=== PATIENT | female | born 1940 | race Hispanic/Latino ===

== ENCOUNTER 2016-05-12 00:28 | Inpatient (IN) | payer MEDICARE, BC ==
[2016-05-12 00:29] VITALS: BMI 29.2
[2016-05-12] MEDS ORDERED: Sodium Chloride 0.9% 1,000 ML IV STA (01:22)
--- NOTE | 2016-05-12 01:27 | ED PDOC ---
Arrival/HPI - General Chief Complaint: GI Problem Time Seen by Provider: 05/12/16 00:43 Historian: Patient - History of Present Illness Narrative History of Present Illness (Text): 05/12/16 01:24 75 year old female on aspirin and plavix presents to the emergency department complaining of 1 day duration bloody diarrhea. Patient denies any recent travel or recent antibiotics. She denies abdominal pain, nausea, vomiting, lightheadedness, weakness, shortness of breath, dyspnea on exertion, or chest pain. Time/Duration: 24 hours Symptom Onset: Gradual Symptom Course: Unchanged Activities at Onset: Rest Past Medical History - Provider Review Nursing Documentation Reviewed: Yes - Infectious Disease Hx of Infectious Diseases: None - Cardiac Hx Cardiac Disorders: Yes Hx SD: Yes Hx Hypertension: Yes - Pulmonary Hx Respiratory Disorders: No - Neurological Hx Neurological Disorder: No Hx Vertigo: Yes - HEENT Hx HEENT Disorder: Yes Hx Deafness: (hearing aids) Other/Comment: [place] - Renal Hx Renal Disorder: No - Endocrine/Metabolic Hx Endocrine Disorders: No - Hematological/Oncological Hx Blood Disorders: No - Integumentary Hx Dermatological Disorder: No - Musculoskeletal/Rheumatological Hx Falls: No - Gastrointestinal Hx Gastrointestinal Disorders: No - Genitourinary/Gynecological Hx Genitourinary Disorders: No - Psychiatric Hx Psychophysiologic Disorder: No Hx Substance Use: No - Surgical History Hx Cardiac Catheterization: Yes Hx Cholecystectomy: Yes Hx Coronary Stent: Yes (x1) - Anesthesia Hx Anesthesia: Yes Hx Anesthesia Reactions: No Hx Malignant Hyperthermia: No Family/Social History - Physician Review Nursing Documentation Reviewed: Yes Family/Social History: Unknown Family HX Smoking Status: Never Smoked Hx Alcohol Use: No Hx Substance Use: No Allergies/Home Meds Allergies/Adverse Reactions: Allergies No Known Allergies Allergy (Verified 05/29/15 09:39) Home Medications: Home Meds Medication Instructions Recorded Confirmed Atorvastatin [Lipitor] 40 mg PO DAILY 05/29/15 05/12/16 Clopidogrel [Plavix] 75 mg PO DAILY 05/29/15 05/12/16 Nebivolol [Bystolic] 5 mg PO DAILY 05/29/15 05/12/16 Pantoprazole [Protonix EC Tab] 40 mg PO DAILY 05/29/15 05/12/16 Meclizine [Antivert] 12.5 mg PO TID 05/31/15 05/12/16 Naproxen [Anaprox] 500 mg PO BID 05/31/15 05/12/16 Aspirin [Adult Low Dose Aspirin EC] 1 tab PO DAILY 05/12/16 05/12/16 Calcium Carb/Magnesium Oxid/D3 1 tab PO DAILY 05/12/16 05/12/16 [Calcium Magnesium + D Tablet] Cholecalciferol (Vitamin D3) 1 tab PO Q7D 05/12/16 05/12/16 [Vitamin D3] Cyanocobalamin (Vitamin B-12) 1 tab PO DAILY 05/12/16 05/12/16 [Vitamin B12] Donepezil [Aricept] 1 tab PO HS 05/12/16 05/12/16 Memantine [Namenda] 1 tab PO DAILY 05/12/16 05/12/16 QUEtiapine [Seroquel] 1 tab PO HS 05/12/16 05/12/16 Physical Exam - Physical Exam Narrative Physical Exam (Text): 05/12/16 01:27 - Review of Systems Constitutional: Normal. absent: Fatigue, Weight Change, Fevers Eyes: Normal ENT: Normal Respiratory: Normal absent: SOB, Cough, Sputum Cardiovascular: Normal absent: Chest pain, Palpitations, Syncope, Dyspnea on Exertion Gastrointestinal: Bloody diarrhea absent: Abdominal pain, Nausea, Vomiting Genitourinary: Normal. absent: Dysuria, Frequency, Hematuria Musculoskeletal: Normal. absent: Arthralgias, Back Pain, Neck Pain Skin: Normal Neurological: Normal absent: Focal Weakness, Lightheadedness Endocrine: Normal Hemo/Lymphatic: Normal Psychiatric: Normal - Physical exam Patient appears age appropriate, speaking full sentences without difficulty - Systems Exam Head: Present: Atraumatic, Normocephalic Pupils: Present: PERRL Extraocular Muscles: Present: EOMI Conjunctiva: Present: Normal Mouth: Present: Moist Mucous Membranes Neck: Present: Normal Range of Motion. No: MIDLINE TENDERNESS, Paraspinal Tenderness Respiratory/Chest: Present: Clear to Auscultation, Good Air Exchange. No: Respiratory Distress, Accessory Muscle Use, Tachypneic Cardiovascular: Present: Regular Rate and Rhythm, Normal S1, S2, Peripheral Pulses Present. No: Murmurs Abdomen: Present: Normal Bowel Sounds, No: Tenderness, Peritoneal Signs, Rebound, Guarding, Distention Rectal: Present: Gross blood. Nurse Rafiq present. Back: Present: Normal Inspection. No: Midline Tenderness, Paraspinal Tenderness Upper Extremity: Present: Normal Inspection. No: Cyanosis, Edema Lower Extremity: Present: Normal Inspection. No: Edema Neurological: Present: GCS=15, Speech Normal, cranial nerves II through XII fully intact with no cerebellar abnormality, neuro-sensory fully intact. No focal neurological deficits. Skin: Present: Warm, Dry, Normal Color. No: Rashes Lymphatic: Present: OX3, NI, NC Psychiatric: Present: Alert, Oriented x 3, Normal Insight, Normal Concentration Vital Signs Reviewed: Yes Vital Signs Temp Pulse Resp BP Pulse Ox 05/12/16 01:43 63 20 129/63 100 05/12/16 00:37 97.8 F 73 18 154/82 H 98 Temperature: Afebrile Blood Pressure: Normal Pulse: Regular Respiratory Rate: Normal Appearance: Positive for: Well-Appearing, Non-Toxic, Comfortable Pain Distress: None Mental Status: Positive for: Alert and Oriented X 3 Medical Decision Making ED Course and Treatment: 05/12/16 01:29 Impression: Elderly female on aspirin and plavix with bloody diarrhea, hemodynamically stable. Rectal exam revealed gross blood. Plan: --EKG --Chest X-ray --Urinalysis --Labs --Protonix, IVF -- Reassess and disposition Progress Notes: 05/12/16 02:04 Chest X-ray read and interpreted by me, which shows no cardiomegaly, no pneumothorax, no effusions. 05/12/16 02:[address] García, agrees with admission for further w/u under his service pt and family aware of and agree with [facility] - Lab Interpretations Lab Results: 05/12/16 01:12 05/12/16 01:12 Lab Results 05/12/16 01:12: WBC 8.7 D, RBC 3.66, Hgb 10.6 L, Hct 32.3 L, MCV 88.3, MCH 29.0 , MCHC 32.8, RDW 13.7, Plt Count 255, MPV 10.9, Gran % 74.1 H, Lymph % (Auto) 16.3 L, Stone % (Auto) 7.7 H, Eos % (Auto) 1.7, Baso % (Auto) 0.2, Gran # 6.44, Lymph # 1.4, Stone # 0.7 H, Eos # 0.2, Baso # 0.02, PT 11.0, INR 1.02, APTT 25.5 , Sodium 136, Potassium 3.9, Chloride 101, Carbon Dioxide 25, Anion Gap 14, BUN 26 H, Creatinine 0.9, Est GFR ( Amer) > 60, Est GFR (Non-Af Amer) > 60, Random Glucose 103, Calcium 9.3, Ferritin Pending, Total Bilirubin 0.9, AST 38, ALT 27, Alkaline Phosphatase 113, Lactate Dehydrogenase 575, Total Creatine Kinase 81, Troponin I < 0.01, Total Protein 7.3, Albumin 4.1, Globulin 3.2, Albumin/Globulin Ratio 1.3 I have reviewed the lab results: Yes - RAD Interpretation Radiology Orders: 05/12/16 00:43 CHEST PORTABLE [RAD] Stat - EKG Interpretation EKG Interpretation (Text): 05/12/16 01:32 EKG: Ordered, reviewed, and independently interpreted the EKG. Rate : 64 BPM Rhythm : NSR Interpretation : No ST-segment elevations, normal axis, normal intervals. Interpreted by me. Comparison : No previous EKG for comparison. Interpreted by ED Physician: Yes Type: 12 lead EKG - Medication Orders Current Medication Orders: Discontinued Medications Sodium Chloride (Sodium Chloride 0.9%) 1,000 mls @ 1,000 mls/hr IV .Q1H STA Stop: 05/12/16 02:21 Last Admin: 05/12/16 01:35 Dose: 1,000 MLS/HR eMAR Start Stop Document 05/12/16 01:35 Kody (Rec: 05/12/16 01:35 R [id number]) Intravenous Solution Start Date 05/12/16 Start Time 01:35 End Date 05/12/16 End time 02:35 Total Infusion Time 60 Pantoprazole Sodium (Protonix Inj) 40 mg IVP STAT STA Stop: 05/12/16 01:23 Last Admin: 05/12/16 01:42 Dose: 40 MG IVP Administration Document 05/12/16 01:42 Kody (Rec: 05/12/16 01:42 R [id number]) Charges for Administration # of IVP Administrations 1 - Scribe Statement The provider has reviewed the documentation as recorded by the Scribe Mari Jacobs Provider Scribe Attestation: All medical record entries made by the Michaelibe were at my direction and personally dictated by me. I have reviewed the chart and agree that the record accurately reflects my personal performance of the history, physical exam, medical decision making, and the department course for this patient. I have also personally directed, reviewed, and agree with the discharge instructions and disposition. Disposition/Present on Arrival - Present on Arrival Any Indicators Present on Arrival: No History of DVT/PE: No History of Uncontrolled Diabetes: No Urinary Catheter: No History of Decub. Ulcer: No History Surgical Site Infection Following: None - Disposition Have Diagnosis and Disposition been Completed?: Yes Diagnosis: Bloody diarrhea Disposition: HOSPITALIZED Disposition Time: 02:36 Patient Plan: Admission Condition: STABLE
[2016-05-12 01:28] LABS: ADD MANUAL DIFF? NO
[2016-05-12 01:42] LABS: ALB/GLOB RATIO 1.3 (1.1-1.8); ALKALINE PHOSPHATASE 113 U/L (38-133); ALT/SGPT 27 U/L (7-56); AST/SGOT 38 U/L (15-39); BILIRUBIN,TOTAL 0.9 mg/dL (0.2-1.3); BLOOD UREA NITROGEN 26 mg/dL (7-21); CALCIUM 9.3 mg/dL (8.4-10.5); CARBON DIOXIDE 25 mmol/L (21-33); CHLORIDE 101 mmol/L (98-107); GFR AFRICAN-AMERICAN > 60; GLUCOSE,RANDOM 103 mg/dL (70-110); POTASSIUM 3.9 mmol/L (3.6-5.0); SODIUM 136 mmol/L (132-148); TOTAL PROTEIN 7.3 g/dL (5.8-8.3)
[2016-05-12 01:50] LABS: BASO # 0.02 K/mm3 (0.0-2.0); BASO % 0.2 % (0.0-3.0); EOS # 0.2 (0.0-0.7); EOS % 1.7 % (1.5-5.0); GRAN # 6.44 (1.4-6.5); GRAN % 74.1 % (50.0-68.0); HEMATOCRIT 32.3 % (36.0-48.0); LYMPH # 1.4 (1.2-3.4); LYMPH % 16.3 % (22.0-35.0); MEAN CELL VOLUME 88.3 fL (80.0-105.0); MEAN CORPUSCULAR HGB CONC 32.8 g/dl (31.0-37.0); MEAN PLATELET VOLUME 10.9 fl (7.0-11.0); MONO # 0.7 (0.1-0.6); MONO % 7.7 % (1.0-6.0); PLATELET COUNT 255 10^3/uL (120.0-450.0); RED CELL DISTRIBUTION WIDTH 13.7 % (11.5-14.5); WHITE BLOOD COUNT 8.7 10^3/ul (4.5-11.0)
[2016-05-12 01:55] LABS: TROPONIN I < 0.01 ng/mL
[2016-05-12 02:02] LABS: INR 1.02 (0.93-1.08); PARTIAL THROMBOPLASTIN TIME 25.5 Seconds (23.7-30.8)
--- NOTE | 2016-05-12 09:14 | HP ---
The patient is in the CCU, which is the critical care unit, room 129, bed 1. HISTORY OF PRESENT ILLNESS: The patient was admitted last night. She presented with rectal bleeding which was substantial. The patient's daughter was concerned and brought the patient to the Emergency Room. According to the daughter, her mother had 3 episodes yesterday of bright red blood per rectum. She has been evaluated and admitted to the ICU for further management. The patient has no fever, no pain. The patient has difficulty in hearing. She has a hearing aid, but it is not appropriately functional. ALLERGIES: The patient has no known allergies. She is a full code. PAST MEDICAL HISTORY: Significant in that she has a history of peptic ulcer disease. The patient has history of coronary artery disease and mild dementia associated with altered mental state, at times the patient has nightmares and dreams. PREVIOUS SURGICAL HISTORY: Nil. PHYSICAL EXAMINATION: VITAL SIGNS: The pulse is 62, blood pressure is 144/65, patient's temperature 97.5, O2 sat 96% on room air. HEENT: Head is normocephalic. Eyes are within normal limits clinically. NECK: The thyroid is not clinically enlarged. The patient's carotid pulses are present bilaterally. HEART: Normal sinus rhythm. Pulse is 62 which is bradycardic but patient is on medications. LUNGS: Trachea central. Breath sounds vesicular. No adventitious sounds are heard at this time. ABDOMEN: Soft. Liver, spleen not palpable. No tenderness, no masses. RECTAL: The patient has a clear, red blood present. CENTRAL NERVOUS SYSTEM: She is conscious, pleasant and cooperative. 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 Auditory function is impaired. LABORATORY DATA: Blood work in the Emergency Room showed a hemoglobin 10.6, which is about what she runs on average. The patient's chemistry: total iron level is 262, the ferritin is pending and the patient's BUN is 26, creatinine 0.9. HOME MEDICATIONS: Consist of Plavix 75 mg daily. The patient is on vitamin D3 once a day 2000 mg. The patient is on magnesium oxide once a day. The patient is on vitamin B12 p.o. sublingual. The patient is on Bystolic 5 mg daily, Aricept 5 mg daily. The patient is on aspirin one tablet which is 81 mg prophylactic, Namenda 5 mg daily. The patient is on Lipitor 40 mg daily, Seroquel 25 mg at bedtime, pantoprazole 40 mg in the morning. The patient takes Naprosyn for back pain and meclizine for dizziness 12.5 mg 3 times a day. The patient's diet is heart healthy. The patient has had a flu vaccine immunization. Her blood pressure is controlled with Bystolic. PLAN: The patient's condition is clinically stable at this time. She will have a gastroenterological evaluation with Dr. Schultz. We will follow up and continue to monitor her hemoglobin at this time. She will be started on IV Protonix. Aspirin, Plavix and NSAIDs will be held due to the GI bleeding. Camron Wagner MD cc: [id number] TT: 05/12/2016 09:13:04 jn MTDD
--- NOTE | 2016-05-12 09:42 | RAD ---
HISTORY: Cough COMPARISON: 05/29/2015 FINDINGS: LUNGS: The lungs are well inflated and clear. PLEURA: No significant pleural effusion identified, no pneumothorax apparent. CARDIOVASCULAR: Normal. OSSEOUS STRUCTURES: No significant abnormalities. VISUALIZED UPPER ABDOMEN: Normal. OTHER FINDINGS: None. IMPRESSION: No active pulmonary disease.
[2016-05-12] MEDS: Magnesium Oxide 400 mg Tab UD PO SCH (10:49)
--- NOTE | 2016-05-12 14:57 | CARD ---
APPROVED REPORT EKG Measurement Heart [id number] <Conclusion> Normal sinus rhythm Minimal voltage criteria for LVH, may be normal variant Cannot rule out Anterior infarct, age undetermined Abnormal ECG
[2016-05-12 16:34] LABS: HEMATOCRIT 29.2 % (36.0-48.0); MEAN CELL VOLUME 87.7 fL (80.0-105.0); MEAN CORPUSCULAR HEMOGLOBIN 28.5 pg (25.0-35.0); MEAN CORPUSCULAR HGB CONC 32.5 g/dl (31.0-37.0); MEAN PLATELET VOLUME 10.5 fl (7.0-11.0)
[2016-05-12 22:32] LABS: HEMATOCRIT 27.8 % (36.0-48.0); MEAN CELL VOLUME 87.1 fL (80.0-105.0); MEAN CORPUSCULAR HEMOGLOBIN 28.5 pg (25.0-35.0); MEAN CORPUSCULAR HGB CONC 32.7 g/dl (31.0-37.0); RED CELL DISTRIBUTION WIDTH 13.9 % (11.5-14.5); WHITE BLOOD COUNT 5.6 10^3/ul (4.5-11.0)
[2016-05-13] MEDS: Pantoprazole 40 mg EC Tab PO SCH (05:36)
[2016-05-13 06:38] LABS: ADD MANUAL DIFF? NO
[2016-05-13 06:42] LABS: BASO # 0.02 K/mm3 (0.0-2.0); BASO % 0.4 % (0.0-3.0); EOS # 0.2 (0.0-0.7); EOS % 3.4 % (1.5-5.0); GRAN # 3.38 (1.4-6.5); GRAN % 63.8 % (50.0-68.0); HEMATOCRIT 28.7 % (36.0-48.0); LYMPH # 1.1 (1.2-3.4); LYMPH % 21.4 % (22.0-35.0); MEAN CELL VOLUME 87.2 fL (80.0-105.0); MEAN CORPUSCULAR HEMOGLOBIN 28.9 pg (25.0-35.0); MEAN CORPUSCULAR HGB CONC 33.1 g/dl (31.0-37.0); MEAN PLATELET VOLUME 10.3 fl (7.0-11.0); MONO # 0.6 (0.1-0.6); PLATELET COUNT 217 10^3/uL (120.0-450.0); WHITE BLOOD COUNT 5.3 10^3/ul (4.5-11.0)
[2016-05-13 07:10] LABS: ALB/GLOB RATIO 1.1 (1.1-1.8); ALKALINE PHOSPHATASE 73 U/L (38-133); ALT/SGPT 19 U/L (7-56); AST/SGOT 23 U/L (15-39); BILIRUBIN,TOTAL 0.9 mg/dL (0.2-1.3); BLOOD UREA NITROGEN 21 mg/dL (7-21); CALCIUM 9.3 mg/dL (8.4-10.5); CARBON DIOXIDE 24 mmol/L (21-33); CHLORIDE 104 mmol/L (98-107); GFR AFRICAN-AMERICAN > 60; GLUCOSE,RANDOM 86 mg/dL (70-110); POTASSIUM 3.8 mmol/L (3.6-5.0); SODIUM 139 mmol/L (132-148); TOTAL PROTEIN 6.3 g/dL (5.8-8.3)
--- NOTE | 2016-05-13 07:28 | CON ---
DATE: 05/12/2016 SUBJECTIVE: This patient was seen and evaluated earlier, discussed with Dr. Wagner. HISTORY OF PRESENT ILLNESS: This is a 75-year-old patient with a past medical history of coronary ar frank disease, peptic ulcer disease, history of cerebrovascular disease, on aspirin and Plavix, who wa s brought to the hospital for complaints of loose bowel movements 1 day mixed with blood. She said t hat she woke up in the morning and moved her bowels and noticed the blood then. She had a few recurr ent bowel movements mixed with blood. Denies any abdominal pain. No vomiting blood. PAST MEDICAL HISTORY: Other past medical history is significant as above. SOCIAL HISTORY: Denies smoking or alcohol. REVIEW OF SYSTEMS: Positive as above. Other 10-point systems reviewed. PHYSICAL EXAMINATION: GENERAL: The patient is lying on the bed, not in acute distress. VITAL SIGNS: Temperature is 97.9, blood pressure 121/67, pulse 96. HEENT: Atraumatic, anicteric. NECK: Supple. HEART: S1, S2 heard. LUNGS: Bilateral air entry present. ABDOMEN: Soft. There is no mass palpable. No tenderness. EXTREMITIES: No edema, no cyanosis. NEUROLOGIC: Alert, oriented. Moves all the extremities. LABORATORY DATA: Hemoglobin 9.5, hematocrit 29.2, platelets 237. Hemoglobin is 9.3, hematocrit 27. 9. IMPRESSION: This is a 75-year-old patient admitted with shortness of breath. The differential diagn osis should include coronary artery disease status post PCI many years ago, on aspirin and Plavix. I n addition, the patient also has cerebrovascular disease. IMPRESSION: This is a 75-year-old patient with a history of coronary artery disease status post perc utaneous coronary intervention in February. RECOMMENDATIONS: 1. Follow up of the hemoglobin. The differential diagnosis of the bleeding should include hemorrhoi ds, diverticulosis, angiodysplasia, colonic neoplasia. I did discuss with the patient's Dr. Benjamin elizondo. The plan is to consider giving a platelet transfusion if the patient has active bleeding g oing on. The patient definitely would benefit from an endoscopy. At this point, it is reasonable to wait the clinical course before considering the endoscopic evaluation. Moreover, she would also pierce efit from platelet transfusion in view of the patient being on aspirin and Plavix before. Chikis Schultz MD cc: [id number] TT: 05/12/2016 23:58:26 Confirmation # [id number] Dictation # [id number] mn 05/13/2016 06:27:49
[2016-05-13] MEDS: Magnesium Oxide 400 mg Tab UD PO SCH (09:36)
[2016-05-13] MEDS: VITAMIN B12 5000 MCG PO SCH (09:36)
[2016-05-13] MEDS ORDERED: Bupivacaine 0.5% Inj(30mL) IJ ONE (11:41)
[2016-05-13] MEDS ORDERED: MethylPREDNISolone Depo 40 mg/ml Inj IM ONE (11:41)
--- NOTE | 2016-05-13 12:47 | CON ---
DATE: 05/13/2016 ORTHOPEDIC CONSULT REPORT A 75-year-old female in room 260, bed 1. The patient is suffering from right-sided sciatica with significant spinal stenosis, lumbar spine wit h radiating pain to the posterior calf aggravated by standing and walking, and good arterial pulse. DVT shows no blood clots. She appears to have classic spinal stenosis with claudication from walking , irritating the spinal stenosis, which was a neurologic claudication as opposed to vascular, and sh e does have trigger point of her right trochanter area. So I took the opportunity to inject the righ t trochanter with Depo-Medrol and Marcaine to get some symptomatic relief. I do not expect that to h elp the spinal stenosis, but eventually, when she gets cleared medically, she could consider epidural , as the MRI shows severe spinal stenosis of the lumbar spine in the region of L4 and L5, and she may also benefit not only from the cortisone shots for the trochanter on the right, but some physical th erapy to teach her how to live with this condition by doing knee to chest flexion exercises of the sp ine, avoid heavy lifting, and to increase her core strength of her lumbar spine, and eventually, when she gets better medically, she could consider an epidural for some relief by the anesthesia doctor, who is more informed on this part of the anatomy, and they do it all the time for anesthesia. FINAL DIAGNOSIS: Right hip greater trochanteric bursitis and spinal stenosis, lumbar spine. Arjun Hawthorne DO cc: [id number] TT: 05/13/2016 12:46:44 Confirmation # [id number] Dictation # [id number] hiwot
--- NOTE | 2016-05-13 14:48 | RAD ---
PROCEDURE: Right Hip Radiographs. HISTORY: pain COMPARISON: None. FINDINGS: BONES: Bone alignment and mineralization are normal. There is no acute fracture or bone destruction. . JOINTS: Normal. SOFT TISSUES: Normal. OTHER FINDINGS: None. IMPRESSION: No acute fracture or dislocation.
--- NOTE | 2016-05-13 14:49 | RAD ---
PROCEDURE: Radiographs of the pelvis. HISTORY: pain COMPARISON: None. FINDINGS: BONES: The pelvic ring is intact. There is no acute fracture or bone destruction. There is mild degenerative osteoarthrosis in the hip joints with mild reduced joint spaces. JOINTS: Sacroiliac Joints: Mild degenerative osteoarthrosis. Pubic Symphysis: Unremarkable. OTHER FINDINGS: None. IMPRESSION: Mild degenerative osteoarthrosis in the hip joints. No acute fracture or dislocation.
--- NOTE | 2016-05-13 19:14 | NM ---
PROCEDURE: Nuclear medicine gastrointestinal bleeding scan. HISTORY: GI bleed COMPARISON: None available. TECHNIQUE: 4 cc of patient blood was withdrawn and mixed with 21 mCi of technetium ultra tagged. Images of the abdomen and pelvis were obtained in the anterior and posterior projection at 1 min intervals over a period of 45 min. FINDINGS: No abnormal extravasation of tracer was observed throughout the exam to indicate active bleeding within or outside the gastrointestinal tract. Physiologic activity was seen in the heart, liver, spleen and blood vessels. IMPRESSION: No evidence of active gastrointestinal bleeding. Concordant results (preliminary interpretation) provided by [facility]. Procedure Completed: 17:45. Preliminary ([facility]) Report: Dictated and Authenticated: 19:40. Final Interpretation: 19:12. May 13, 2016.
--- NOTE | 2016-05-13 20:27 | PN ---
DATE: 05/13/2016 SUBJECTIVE: This patient was seen and evaluated earlier, discussed with the patient's daughter who w as at bedside. The patient has been moving her bowels and no abdominal pain. No bleeding today. PHYSICAL EXAMINATION: VITAL SIGNS: Temperature 98, pulse 55, blood pressure 145/75. HEENT: Atraumatic, anicteric. NECK: Supple. HEART: S1, S2 heard. LUNGS: Bilateral air entry present. ABDOMEN: Soft. There is no tenderness. EXTREMITIES: No edema. No cyanosis. NEUROLOGIC: Alert, oriented. Moves all the extremities. LABORATORY DATA: Hemoglobin 9.5, it was 9.1 yesterday; hematocrit 28.7, WBC 5.3, platelets 217. Norma britton is essentially unremarkable. IMPRESSION: This 75-year-old patient was admitted with bleeding per rectum, maroon stool. The patie nt has been on aspirin and Plavix. The hemoglobin is now stable. The patient was off the antiplatel et therapy at this present time. The patient was on nonsteroidal anti-inflammatory drugs for joint p ain. PLAN: The present plan is to continue to follow up the hemoglobin and hematocrit and if there is an active bleeding, will consider platelet transfusion. The patient has been scheduled for an upper GI endoscopy tomorrow. Since the patient was off the aspirin only the day before the admission, the jerri n is to consider diagnostic workup. Thank you very much for allowing us to participate in the care of the patient. Chikis Schultz MD cc: [id number] TT: 05/13/2016 20:26:24 Confirmation # [id number] Dictation # [id number] dn
--- NOTE | 2016-05-13 20:55 | PN ---
DATE: 05/13/2016 The patient is in the [facility] in [place], admitted yesterday. The patient presented with rectal bleeding. She also had some discomfort in the chest, dizziness. She had anxiety, worried about her bleeding from the rectum. She has past history of coronary artery disease, cerebrovascular disease, dizziness. The patient has history of degenerative arthritis, lumbar neuritis, osteoarthritis. The patient had irregular heartbeat. She also has on and off chest pain. She has a clinical diagnosis of dementia for which she gets treatment. PHYSICAL EXAMINATION: GENERAL: On examination, the patient is on the telemetry floor, room 260, bed 1. She is lying down, comfortable. VITAL SIGNS: Pulse is 55, blood pressure is 145/75, respirations are 20, temperature 98.0. HEAD: Normocephalic. NECK: Thyroid is not enlarged. Carotid pulses are present. There is no lymphadenopathy in the neck. LUNGS: Trachea is central. Breath sounds vesicular. No adventitious sounds. HEART: Normal sinus rhythm, S1, S2 present, sinus bradycardia. ABDOMEN: Soft. Liver, spleen not palpable. No tenderness. No masses. RECTAL: The patient has rectal bleeding and it is evident. The patient had a bleeding scan yesterday which is not completely diagnostic. CENTRAL NERVOUS SYSTEM: She is conscious. She has stiffness. She wears a hearing aid. She also has a history of cerebrovascular disease and dementia. MEDICATIONS: The patient's medications consist of Antivert 12.5 mg 3 times a day, Aricept 5 mg daily, Lipitor 40 mg daily, magnesium oxide 400 mg daily, Namenda 5 mg daily, calcium carbonate twice a day for osteoporosis. The patient takes pantoprazole 40 mg daily, Seroquel 25 mg at bedtime, Tenormin 50 mg daily for blood pressure, vitamin B12 and also vitamin D. ASSESSMENT AND PLAN: The patient was seen by Dr. Hawthorne. He is the orthopedic surgeon who evaluated the patient and recommended a local injection of steroid for sciatic pain. The patient will also be requested to do physical therapy evaluation tomorrow. The patient's GI evaluation was done by Dr. Schultz. He is a product marketing intern. He had placed the patient after the bleeding scan on a followup CBC to monitor the hemoglobin level. The patient also had 2 units of blood available in case the patient needed to be transfused. The patient will probably need endoscopy, upper and lower endoscopy to delineate and diagnose the cause of bleeding. Her vital signs are stable at this time. We will have followup with treatment and evaluations. The CAT scan of the abdomen was ordered on the patient, and it will be evaluated by Dr. Schultz. LABORATORY DATA: The patient's blood work: The recent hemoglobin is 9.5. The patient's chemistry: The sodium is 139, potassium is 3.8. The renal functions are good. The patient's GFR is greater than 60. The transferrin level is 221. The patient's albumin is 3.3. We will continue with the medications and monitor the patient's hemoglobin every 6 hours, and we will follow up with Dr. Schultz and Dr. Hawthorne's treatment plan. Camron Wagner MD cc: [id number] TT: 05/13/2016 20:55:06 Confirmation # [id number] Dictation # [id number] mn MTDD
[2016-05-14] MEDS: Pantoprazole 40 mg EC Tab PO SCH ×2 (05:35→05:36)
[2016-05-14 08:33] LABS: MEAN CELL VOLUME 87.6 fL (80.0-105.0); MEAN CORPUSCULAR HEMOGLOBIN 28.7 pg (25.0-35.0); MEAN CORPUSCULAR HGB CONC 32.8 g/dl (31.0-37.0); MEAN PLATELET VOLUME 10.4 fl (7.0-11.0); RED CELL DISTRIBUTION WIDTH 13.8 % (11.5-14.5); WHITE BLOOD COUNT 7.9 10^3/ul (4.5-11.0)
[2016-05-14 08:59] LABS: ALB/GLOB RATIO 1.2 (1.1-1.8); ALKALINE PHOSPHATASE 82 U/L (38-133); ALT/SGPT 24 U/L (7-56); AST/SGOT 21 U/L (15-39); BILIRUBIN,TOTAL 0.8 mg/dL (0.2-1.3); BLOOD UREA NITROGEN 19 mg/dL (7-21); CALCIUM 9.3 mg/dL (8.4-10.5); CARBON DIOXIDE 27 mmol/L (21-33); CHLORIDE 103 mmol/L (95-110); GFR AFRICAN-AMERICAN > 60; GLUCOSE,RANDOM 107 mg/dL (70-110); MAGNESIUM 1.9 mg/dL (1.7-2.2); POTASSIUM 4.1 mmol/L (3.6-5.0); SODIUM 140 mmol/L (132-148); TOTAL PROTEIN 6.9 g/dL (5.8-8.3)
[2016-05-14] MEDS: Magnesium Oxide 400 mg Tab UD PO SCH (09:03)
--- NOTE | 2016-05-14 09:11 | CP.PCM.PN ---
Subjective - Date & Time of Evaluation Date of Evaluation: 05/14/16 Time of Evaluation: 08:20 - Subjective Subjective: Patient is seen this morning in room 260 bed 1. She is to go for endoscopy this morning. Objective - Vital Signs/Intake and Output Vital Signs (last 24 hours): Temp Pulse Resp BP Pulse Ox 97.9 F 52 L 18 135/63 98 05/14/16 06:00 05/14/16 06:00 05/14/16 06:00 05/14/16 06:00 05/14/16 06:00 Intake and Output: 05/14/16 05/14/16 06:59 18:59 Intake Total 1077 Output Total 400 Balance 677 - Medications Medications: Current Medications Atenolol (Tenormin) 50 mg PO DAILY [facility] Last Admin: 05/13/16 09:36 Dose: 50 mg Atorvastatin Calcium (Lipitor) 40 mg PO DIN [facility] Last Admin: 05/13/16 17:56 Dose: 40 mg Calcium Carbonate (Oscal) 500 mg PO DAILY [facility] Last Admin: 05/13/16 09:36 Dose: 500 mg Cholecalciferol (Vitamin D) 1,000 iu PO DAILY [facility] Last Admin: 05/13/16 09:37 Dose: 1,000 iu Cyanocobalamin (Vitamin B12 1000 Mcg Tab) 5,000 mcg PO DAILY [facility] Last Admin: 05/13/16 09:36 Dose: 5,000 mcg Donepezil HCl (Aricept) 5 mg PO HS [facility] Last Admin: 05/13/16 21:40 Dose: 5 mg Home Med (Home Med) 1 unit PO DAILY [facility] Last Admin: 05/13/16 09:36 Dose: Not Given Magnesium Oxide (Mag-Ox) 400 mg PO DAILY [facility] Last Admin: 05/13/16 09:36 Dose: 400 mg Meclizine HCl (Antivert) 12.5 mg PO TID [facility] Last Admin: 05/13/16 17:56 Dose: 12.5 mg Memantine (Namenda) 5 mg PO DAILY [facility] Last Admin: 05/13/16 09:36 Dose: 5 mg Pantoprazole Sodium (Protonix Ec Tab) 40 mg PO 0630 [facility] Last Admin: 05/14/16 05:36 Dose: 40 mg Quetiapine Fumarate (Seroquel) 25 mg PO [facility] PRN Reason: Protocol Last Admin: 05/13/16 21:40 Dose: 25 mg - Labs Labs: 05/14/16 08:20 05/14/16 08:20 PT 11.0 Seconds (9.9-11.8) 05/12/16 01:12 INR 1.02 (0.93-1.08) 05/12/16 01:12 APTT 25.5 Seconds (23.7-30.8) 05/12/16 01:12 - Constitutional Appears: No Acute Distress - Head Exam Head Exam: ATRAUMATIC, NORMOCEPHALIC - Respiratory Exam Respiratory Exam: Clear to Ausculation Bilateral, NORMAL BREATHING PATTERN - Cardiovascular Exam Cardiovascular Exam: +S1, +S2 - GI/Abdominal Exam GI & Abdominal Exam: Soft, Normal Bowel Sounds. absent: Tenderness - Neurological Exam Neurological Exam: Alert, Awake Assessment and Plan - Assessment and Plan (Free Text) Assessment: GI Bleed Sciatica Spinal Stenosis HTN CAD mild dementia GERD Plan: Patient is seen this morning. GI evaluation appreciated. She is to have endoscopy this morning for GI Bleed. Patient has been on NSAIDs for arthritis and sciatic pain. r/o bleeding ulcer. continue protonix. monitor hemoglobin. Patient was seen by Dr. Hawthorne yesterday for the sciatic pain. Cortisone shot was given. Patient has some improvement in the pain. She is off ASA, Plavix and NSAIDs secondary to GI Bleed.
[2016-05-14] MEDS: VITAMIN B12 5000 MCG PO SCH (10:00)
[2016-05-14] MEDS ORDERED: Lidocaine 2% Inj (20ml) ONE (13:17)
[2016-05-14] MEDS ORDERED: Propofol 10 mg/ml Inj (20 ML) ONE (13:18)
[2016-05-14] MEDS ORDERED: Lactated Ringer's 1,000 ML IV SCH (13:45)
[2016-05-14] MEDS ORDERED: Peg-Electrolyte Oral Soln 4L (Golytely) PO STA (15:09)
[2016-05-15] MEDS: Pantoprazole 40 mg EC Tab PO SCH (05:34)
[2016-05-15 06:49] LABS: BLOOD UREA NITROGEN 14 mg/dL (7-21); CALCIUM 8.9 mg/dL (8.4-10.5); CARBON DIOXIDE 28 mmol/L (21-33); CHLORIDE 97 mmol/L (98-107); GFR AFRICAN-AMERICAN > 60; GLUCOSE,RANDOM 87 mg/dL (70-110); POTASSIUM 3.9 mmol/L (3.6-5.0); SODIUM 134 mmol/L (132-148)
--- NOTE | 2016-05-15 10:14 | PN ---
DATE: 05/15/2016 The patient is in the [facility] in [place]. She was admitted with rectal bleeding. The patient is in room 260, bed 1. The patient has a history of rectal bleeding which was monitored for 2 days now, and patient is scheduled to get colonoscopy today. The patient had upper endoscopy that did not show any significant pathology. PAST MEDICAL HISTORY: Significant that she has had coronary artery disease, cerebrovascular disease. The patient has history of hypertension, degenerative arthritis and lumbar neuritis. PHYSICAL EXAMINATION: VITAL SIGNS: This morning, the pulse is 56, blood pressure is 150/78, respirations are 20. GENERAL: She is conscious. HEENT: She is clinically deaf. The patient has a hearing aid. LUNGS: Clear. HEART: Normal sinus rhythm. ABDOMEN: Soft, no tenderness. CENTRAL NERVOUS SYSTEM: No focal deficit. GASTROINTESTINAL: The patient had examination of the GI tract. Rectal exam showed evidence of blood at the time of admission. LABORATORY DATA: The hemoglobin is 9.5. The patient's chemistry: Sodium is 134, potassium is 3.9. Renal functions are good. The patient was prepped for colonoscopy by Dr. Schultz's advice. The patient will have the colonoscopy today and, pending the results of the colonoscopy, the patient will be discharged for home care. We will discontinue the Plavix at this time for the patient. She does not actually require the Plavix because of the nature of her problem and the fact that she has had it for a couple of years after the angioplasty already. MEDICATIONS: Consist of Antivert for dizziness. The patient takes Aricept and Namenda for dementia, Lipitor for coronary artery disease, pantoprazole for gastritis, Seroquel for sleep and atenolol for blood pressure. The patient is on vitamin D, calcium carbonate for osteoporosis. Diet is heart healthy diet, but patient is n.p.o. right now. Will have the test done and then will make further decision. Camron Wagner MD cc: [id number] TT: 05/15/2016 10:14:03 Confirmation # [id number] Dictation # [id number] [email or web address]
[2016-05-15] MEDS ORDERED: Propofol 10 mg/ml Inj (20 ML) ONE (11:07)
[2016-05-15] MEDS ORDERED: Lactated Ringer's 1,000 ML IV SCH (11:45)
[2016-05-15] MEDS: VITAMIN B12 5000 MCG PO SCH ×2 (13:28→13:34)
[2016-05-15] MEDS: Magnesium Oxide 400 mg Tab UD PO SCH (13:34)
[2016-05-16 15:57] VITALS: RESP 20; TEMP 97.6; O2SAT 97
[2016-05-16 15:58] VITALS: BP 163/74; PULSE 56
== END 2016-05-15 14:26 | disposition home or self-care (01) | DRG 379 ==
LOC: ED 00:28 → ERH 02:58 → CCU 04:54 → 2RNO 19:38
PROVIDERS: ADMIT Internal Medicine; ATTEND Internal Medicine
PROC: 3E0U33Z Introduction of Anti-inflammatory into Joints, Percutaneous Approach (ICD-10-PCS; 2016-05-13)
PROC: 3E0U3BZ Introduction of Anesthetic Agent into Joints, Percutaneous Approach (ICD-10-PCS; 2016-05-13)
PROC: 0DJ08ZZ Inspection of Upper Intestinal Tract, Via Natural or Artificial Opening Endoscopic (ICD-10-PCS; principal; 2016-05-14 12:00)
PROC: 0DJD8ZZ Inspection of Lower Intestinal Tract, Via Natural or Artificial Opening Endoscopic (ICD-10-PCS; 2016-05-15)
DX: K25.4 Chronic or unspecified gastric ulcer with hemorrhage (principal); F03.90 Unspecified dementia, unspecified severity, without behavioral disturbance, psychotic disturbance, mood disturbance, and anxiety; K31.7 Polyp of stomach and duodenum; I25.10 Atherosclerotic heart disease of native coronary artery without angina pectoris; M48.06 Spinal stenosis, lumbar region; M70.61 Trochanteric bursitis, right hip; F41.9 Anxiety disorder, unspecified; M54.30 Sciatica, unspecified side; I10 Essential (primary) hypertension; K21.9 Gastro-esophageal reflux disease without esophagitis; M54.16 Radiculopathy, lumbar region; I67.9 Cerebrovascular disease, unspecified; Z79.02 Long term (current) use of antithrombotics/antiplatelets; Z95.5 Presence of coronary angioplasty implant and graft

== ENCOUNTER 2016-09-07 10:29 | Day surgery (SDC) | payer MEDICARE, BC ==
[2016-09-05 13:27] VITALS: BMI 28.3
[2016-09-07] MEDS ORDERED: Propofol 10 mg/ml Inj (20 ML) ONE (12:00)
[2016-09-07] MEDS ORDERED: Atropine 0.4 mg/ml Inj (1 mL) ONE ×2 (12:52→12:53)
[2016-09-07] MEDS ORDERED: Sodium Chloride 0.9% 1,000 ML IV SCH (13:30)
[2016-09-07 14:10] VITALS: BP 152/79; PULSE 51; RESP 18; TEMP 98.3; O2SAT 98
== END 2016-09-07 14:47 | disposition home or self-care (01) ==
LOC: ENDO 10:29
PROVIDERS: ATTEND Internal Medicine Gastroenterology
DX: K31.7 Polyp of stomach and duodenum (principal); K44.9 Diaphragmatic hernia without obstruction or gangrene; K29.50 Unspecified chronic gastritis without bleeding; D12.2 Benign neoplasm of ascending colon; D12.5 Benign neoplasm of sigmoid colon; K64.8 Other hemorrhoids; K57.30 Diverticulosis of large intestine without perforation or abscess without bleeding; Q43.8 Other specified congenital malformations of intestine; I10 Essential (primary) hypertension; J45.909 Unspecified asthma, uncomplicated
CPT/HCPCS: 43239; 45381; 45385; 88305; 88342; J0461; J2001; J2704; J7040 ×2

== ENCOUNTER 2018-03-28 09:17 | Outpatient (CLI) | payer MEDICARE, BC | END 2018-03-28 09:18 | disposition home or self-care (01) | LOC: RAD 09:17 ==